=== PATIENT | female | born 1960 | race Caucasian/White ===

== ENCOUNTER 2017-05-16 16:59 | Emergency (ER) | payer SELFPAY ==
[~2017-05-16 16:59] MED LIST: IBUP200C PO; MELA1TAB33; PRAV20TA2 PO; ZOFR4TAB PO
[2017-05-16 17:09] VITALS: BP 160/111; PULSE 111; RESP 18; TEMP 98.4; O2SAT 94
--- NOTE | 2017-05-16 17:59 | RADRPT ---
EXAM DATE/TIME: 05/16/2017 17:42 [place] COMPARISON: No previous studies available for comparison. INDICATIONS : Dizzy, family history of aneurysms RADIATION DOSE: 56.35 CTDIvol (mGy) MEDICAL HISTORY : Pancreatitis. Hernia, hiatal. SURGICAL HISTORY : None. ENCOUNTER: Initial ACUITY: 2 weeks PAIN SCALE: 0/10 LOCATION: cranial TECHNIQUE: Multiple contiguous axial images were obtained of the head. Using automated exposure control and adj ustment of the mA and/or kV according to patient size, radiation dose was kept as low as reasonably a chievable to obtain optimal diagnostic quality images. DICOM format image data is available electro nically for review and comparison. FINDINGS: CEREBRUM: The ventricles are normal for age. No evidence of midline shift, mass lesion, hemorrhage or acute in farction. No extra-axial fluid collections are seen. POSTERIOR FOSSA: The cerebellum and brainstem are intact. The 4th ventricle is midline. The cerebellopontine angle i s unremarkable. EXTRACRANIAL: The visualized portion of the orbits is intact. SKULL: The calvaria is intact. No evidence of skull fracture. CONCLUSION: Negative noncontrast head CT. Homer Carlson MD on May 16, 2017 at 17:57 Board Certified Radiologist. This report was verified electronically.
[2017-05-16] MEDS ORDERED: SODIUM CHLOR 0.9% 1000 ML INJ 1,000 ML IV ONE (18:15)
[2017-05-16] MEDS ORDERED: ONDANSETRON HCL 4 MG/2 ML VIAL IV ONE (18:30)
[2017-05-16 18:46] LABS: ALBUMIN 4.3 GM/DL (3.4-5.0); AST (GOT) 16 U/L (15-37); BICARBONATE 24.4 MEQ/L (21.0-32.0); BLOOD UREA NITROGEN 13 MG/DL (7-18); CALCIUM 9.7 MG/DL (8.5-10.1); CHLORIDE 105 MEQ/L (98-107); CREATININE 0.77 MG/DL (0.50-1.00); GLOMERULAR FILTRATION RATE 78 ML/MIN (>89); GLUCOSE,RANDOM 97 MG/DL (74-106); SODIUM (NA) 139 MEQ/L (136-145)
[2017-05-16 18:47] LABS: ALT (GPT) 22 U/L (10-53)
[2017-05-16 18:51] LABS: ALKALINE PHOSPHATASE 83 U/L (45-117); TOTAL BILIRUBIN ADULT 0.4 MG/DL (0.2-1.0); TOTAL PROTEIN 8.3 GM/DL (6.4-8.2); TROPONIN I LESS THAN 0.02 NG/ML (0.02-0.05)
--- NOTE | 2017-05-16 19:03 | PD ---
HPI Chief Complaint: Medical Clearance Time Seen by Provider: 18:07 Travel History International Travel<30 days: No Contact w/Intl Traveler<30days: No Traveled to known affect area: No History of Present Illness HPI 57-year-old woman who presents to the emergency department complaining of dizziness palpitations lightheadedness and near syncopal symptoms yesterday. She has history of bowel problems of lymphocytic colitis which she states gives her retching daily, and frequent bouts of diarrhea. This is not changed from her baseline although she has symptoms regularly. She does have a history of esophagitis and hiatal hernia. In the past she has had trouble with low potassium but she has done better since she has been under the care of for her colitis. No heart disease. Was feeling worse today and so called her doctor referred her to the emergency department here. History Past Medical History Narrative Medical Lymphocytic colitis GERD Hyperlipidemia Tetanus Vaccination: < 5 Years Influenza Vaccination: Yes Menopausal: Yes Past Surgical History Surgical History: No Previous Surgery Social History Alcohol Use: No Tobacco Use: No Allergies-Medications (Allergen,Severity, Reaction): Coded Allergies: No Known Allergies (Unverified , 04/11/16) Reported Meds & Prescriptions Reported Meds & Active Scripts Active Pravastatin 20 Mg Tab 20 Mg PO DAILY Zofran (Ondansetron HCl) 4 Mg Tab 4 Mg PO PRN PRN Reported Ibuprofen 200 Mg Cap 200 Mg PO Q4H PRN Gnp Melatonin (Melatonin) 3 Mg Tab Review of Systems Except as stated in HPI: all other systems reviewed are Neg Physical Exam Narrative GENERAL: Well-appearing 57-year-old woman, no acute distress. SKIN: Slightly decreased skin turgor. HEAD: Atraumatic. Normocephalic. EYES: Pupils equal and round. No scleral icterus. No injection or drainage. ENT: No nasal bleeding or discharge. Mucous membranes pink and moist. NECK: Trachea midline. No JVD. CARDIOVASCULAR: Regular rate and rhythm. No murmur appreciated. RESPIRATORY: No accessory muscle use. Clear to auscultation. Breath sounds equal bilaterally. GASTROINTESTINAL: Abdomen soft, non-tender, nondistended. Hepatic and splenic margins not palpable. MUSCULOSKELETAL: No obvious deformities. No clubbing. No cyanosis. No edema. NEUROLOGICAL: Awake and alert. No obvious cranial nerve deficits. Motor grossly within normal limits. Normal speech. PSYCHIATRIC: Appropriate mood and affect; insight and judgment normal. Data Data Last Documented VS Vital Signs Date Time Temp Pulse Resp B/P (MAP) Pulse Ox O2 Delivery O2 Flow Rate FiO2 05/16/17 17:59 18 05/16/17 17:09 98.4 111 160/111 (127) 94 Orders Orders Electrocardiogram (05/16/17 17:13) Complete Blood Count With Diff (05/16/17 17:13) Comprehensive Metabolic Panel (05/16/17 17:13) Creatine Kinase (Cpk) (05/16/17 17:13) Troponin I (05/16/17 17:13) Ct Brain W/O Iv Contrast(Rout) (05/16/17 17:13) Lipase (05/16/17 18:14) Sodium Chlor 0.9% 1000 Ml Inj (Ns 1000 M (05/16/17 18:15) Ondansetron Inj (Zofran Inj) (05/16/17 18:30) Labs Laboratory Tests Test 05/16/17 17:36 05/16/17 18:27 Blood Urea Nitrogen 13 MG/DL Creatinine 0.77 MG/DL Random Glucose 97 MG/DL Total Protein 8.3 GM/DL Albumin 4.3 GM/DL Calcium Level 9.7 MG/DL Alkaline Phosphatase 83 U/L Aspartate Amino Transf (AST/SGOT) 16 U/L Alanine Aminotransferase (ALT/SGPT) 22 U/L Total Bilirubin 0.4 MG/DL Sodium Level 139 MEQ/L Potassium Level 3.8 MEQ/L Chloride Level 105 MEQ/L Carbon Dioxide Level 24.4 MEQ/L Anion Gap 10 MEQ/L Estimat Glomerular Filtration Rate 78 ML/MIN Total Creatine Kinase 93 U/L Troponin I LESS THAN 0.02 NG/ML Lipase 86 U/L [facility] Medical Decision Making Medical Screen Exam Complete: Yes Emergency Medical Condition: Yes Interpretation(s) LABS: CBC pending Chemistries unremarkable Troponin negative Lipase normal Total protein is low but elevated Head CT negative Differential Diagnosis Weakness, dehydration, electrolyte abnormality, palpitations, other Narrative Course Medical decision making pleasant 57-year-old presents to the emergency department with a lightheadedness dizziness palpitations. I think this is likely from dehydration. Some decreased skin turgor. She has some GI problems and retching at baseline. Family history of aneurysms. CT had ordered off from was negative. Looks well. Given IV fluids. Feeling improved. Recommend outpatient follow-up. Diagnosis Primary Impression: Lightheadedness Patient Instructions: General Instructions Additional Instructions: Drink plenty of fluids stay well-hydrated. The Zofran if needed for nausea or vomiting. Follow-up with her primary doctor in the next 2-4 days. Return to the emergency department for any new or worsening symptoms. Disposition: 01 DISCHARGE HOME Condition: Stable Adolfo Perez MD May 16, 2017 19:03
[2017-05-16 19:55] LABS: BASOPHIL # 0.1 TH/MM3 (0-0.2); EOSINOPHIL # 0.1 TH/MM3 (0-0.4); EOSINOPHIL % 1.2 % (0.0-4.0); HEMATOCRIT 42.2 % (35.0-46.0); HEMOGLOBIN 13.8 GM/DL (11.6-15.3); LYMPH % 24.2 % (9.0-44.0); LYMPHOCYTE # 1.8 TH/MM3 (1.0-4.8); MEAN CELL VOLUME 84.9 FL (80.0-100.0); MEAN CORPUSCULAR HEMOGLOBIN 27.8 PG (27.0-34.0); MEAN CORPUSCULAR HGB CONC 32.7 % (32.0-36.0); MEAN PLATELET VOLUME 9.3 FL (7.0-11.0); MONO % 6.1 % (0.0-8.0); MONOCYTE # 0.4 TH/MM3 (0-0.9); NEUT % 67.5 % (16.0-70.0); PLATELET COUNT 281 TH/MM3 (150-450); RED BLOOD COUNT 4.97 MIL/MM3 (4.00-5.30); RED CELL DISTRIBUTION WIDTH 13.1 % (11.6-17.2); WHITE BLOOD COUNT 7.4 TH/MM3 (4.0-11.0)
[2017-05-16] MEDS ORDERED: ZOFR4TAB PO (20:29)
--- NOTE | 2017-05-17 23:38 | EKG ---
Date Performed: 05/16/2017 Time Performed: 17:34:18 PTAGE: 57 years EKG: Sinus rhythm NORMAL ECG PREVIOUS TRACING : 10/23/2014 18.04 Since the previous tracing, no significant change noted DOCTOR: Russ Rosario Interpretating Date/Time 05/17/2017 23:35:33
== END 2017-05-16 20:44 | disposition home or self-care (01) ==
LOC: NEPC 16:59
DX: R42 Dizziness and giddiness (principal); R00.2 Palpitations; E78.5 Hyperlipidemia, unspecified
CPT/HCPCS: 70450; 80053; 82550; 83690; 84484; 85025; 93005; 96374; 99285; J2405; J7030